=== PATIENT | female | born 1985 | race Caucasian/White ===

== ENCOUNTER 2017-04-28 22:15 | Emergency (ER) | payer MEDICAID, OTHER ==
[2017-04-28] MEDS ORDERED: Ondansetron 4 MG/2 ML SDV ONE (22:38)
[2017-04-28] MEDS ORDERED: Ondansetron 4 MG/2 ML SDV IVPUSH ONE (22:39)
[2017-04-28] MEDS ORDERED: Sodium Chloride 0.9% 1,000 ML ONE (22:39)
--- NOTE | 2017-04-28 22:59 | EDM.PDOC ---
ED HPI GENERAL MEDICAL PROBLEM - General Chief Complaint: Gastrointestinal Problem Stated Complaint: N/V/D Time Seen by Provider: 04/28/17 22:42 Source of Information: Reports: Patient History Limitations: Reports: No Limitations - History of Present Illness INITIAL COMMENTS - FREE TEXT/NARRATIVE: Patient presents with N/V/D that started almost two weeks ago. The vomiting has been 1-2/day until today has been 5x. The diarrhea has only been a couple of the days and was twice today. No blood in it. She denies fever, [place] country travel, eating poorly cooked foods. She has had a cough for most of the two weeks but it has improved the past two days. She smokes so always has some cough she says, just worse the past two weeks. She is still urinating but feels weaker today. - Related Data Allergies Allergy/AdvReac Type Severity Reaction Status Date / Time No Known Drug Allergies Allergy Other Verified 04/28/17 23:07 Home Meds: Home Meds Venlafaxine [Effexor XR] 150 mg PO DAILY 04/28/17 [History] ED ROS GENERAL - Review of Systems Review Of Systems: See Below Constitutional: Reports: Malaise, Weakness. Denies: Fever, Diaphoresis, Decreased Appetite HEENT: Reports: Throat Pain. Denies: Ear Pain, Vision Change Respiratory: Reports: Cough, Sputum. Denies: Shortness of Breath, Wheezing ( did have; but resolved) Cardiovascular: Denies: Chest Pain, Lightheadedness, Syncope GI/Abdominal: Reports: Diarrhea, Nausea, Vomiting. Denies: Abdominal Pain, Constipation : Denies: Discharge, Dysuria, Flank Pain Musculoskeletal: Reports: Other (general body aches) Skin: Denies: Cyanosis, Jaundice, Mottled, Pallor, Diaphoresis Neurological: Denies: Confusion, Dizziness, Seizure, Syncope Psychiatric: Denies: Agitation, Anxiety, Confusion ED EXAM, GI/ABD - Physical Exam Exam: See Below General Appearance: Alert, WD/WN, No Apparent Distress Eyes: Bilateral: Normal Appearance, EOMI Ears: Normal External Exam, Hearing Grossly Normal Nose: Normal Inspection, No Blood Throat/Mouth: Normal Inspection, Normal Lips, Normal Teeth, Normal Gums, Normal Oropharynx, Normal Voice, No Airway Compromise Head: Atraumatic, Normocephalic Neck: Normal Inspection, Full Range of Motion Respiratory/Chest: No Respiratory Distress, Lungs Clear, Normal Breath Sounds, No Accessory Muscle Use Cardiovascular: Regular Rate, Rhythm, No Edema, No Gallop, No JVD, No Murmur GI/Abdominal Exam: Normal Bowel Sounds, Soft, Non-Tender, No Organomegaly, No Distention, No Abnormal Bruit, No Mass Back Exam: No: CVA Tenderness (L), CVA Tenderness (R) Extremities: Normal Inspection, Normal Range of Motion Neurological: Alert, Oriented, Normal Cognition, No Motor/Sensory Deficits Psychiatric: Normal Affect, Normal Mood Skin Exam: Warm, Dry, Intact, Normal Color, No Rash Course - Orders/Labs/Meds Meds: Medications Discontinued Medications Generic Name Dose Route Start Last Admin Trade Name Carlitos PRN Reason Stop Dose Admin Sodium Chloride Confirm 04/28/17 22:39 Normal Saline Administered 04/28/17 22:40 Dose 1,000 mls @ as directed .ROUTE .STK-MED ONE Ondansetron HCl Confirm 04/28/17 22:38 Zofran Administered 04/28/17 22:39 Dose 4 mg .ROUTE .STK-MED ONE - Re-Assessments/Exams Free Text/Narrative Re-Assessment/Exam: 04/28/17 23:53 Patient remained stable throughout ER course. Nausea resolved with Zofran. She felt better overall after the fluids and Zofran. UA normal with trace blood ; patient is finishing up her period. Discussed findings and treatment plan. Discharged in stable condition. Departure - Departure Time of Disposition: 23:53 Disposition: Home, Self-Care 01 Condition: Good Clinical Impression: Nausea vomiting and diarrhea Acute bronchitis Qualifiers: Bronchitis organism: unspecified organism Qualified Code(s): J20.9 - Acute bronchitis, unspecified - Discharge Information Additional Instructions: 1. Drink 8 cups of water daily. 2. Take the medications as directed. 3. You may try Mucinex or Robitussin DM to help control your cough. 4. Follow up with a PCP if not improving or if worsening. 5. Go to ER if worsening and PCP unavailable.
[2017-04-28] MEDS ORDERED: Sodium Chloride 0.9% 1,000 ML IV ONE (23:00)
[2017-04-28 23:31] LABS: CHLORIDE,CL 104 mmol/L (98-115); SODIUM,NA 139 mmol/L (136-145)
== END 2017-04-28 23:55 | disposition home or self-care (01) ==
LOC: KA.ED 22:15
DX: J20.9 Acute bronchitis, unspecified (principal); R19.7 Diarrhea, unspecified; R11.2 Nausea with vomiting, unspecified; Z79.899 Other long term (current) drug therapy
CPT/HCPCS: 80053; 81001; 85025; 96361; 96374; 99283; J2405; J7030

== ENCOUNTER 2022-06-08 02:08 | Emergency (ER) | payer MEDICAID ==
[2022-06-08] MEDS ORDERED: Sodium Chloride 0.9% 1,000 ML ONE (02:34)
[2022-06-08] MEDS ORDERED: HYDROmorphone 1 MG/ML Syringe IVPUSH ONE (02:36)
[2022-06-08] MEDS ORDERED: Sodium Chloride 0.9% 1,000 ML IV ONE (02:37)
[2022-06-08] MEDS ORDERED: Ondansetron 4 MG/2 ML SDV IVPUSH ONE (02:38)
[2022-06-08 03:21] LABS: ANION GAP 14.2 mmol/L (5-15)
[2022-06-08] MEDS ORDERED: Iopamidol 755 Mg/ML 75 ML Bottle IVPUSH ONE (03:46)
[2022-06-08] MEDS ORDERED: Sodium Chloride 0.9% 50 ML IV SCH (04:00)
== END 2022-06-08 05:12 | disposition home or self-care (01) ==
LOC: KA.ED 02:08
DX: K82.8 Other specified diseases of gallbladder (principal); Z72.0 Tobacco use
CPT/HCPCS: 74177; 80053; 81001; 81025; 82150; 83690; 85025; 96361; 96374; 96375; 99284; 99284-25; J1170; J2405; J7030; Q9967

== ENCOUNTER 2022-06-23 00:29 | Emergency (ER) | payer MEDICAID ==
[2022-06-23] MEDS: Sodium Chloride 0.9% 1,000 ML IV ONE (01:00)
[2022-06-23] MEDS: Ondansetron 4 MG/2 ML SDV IVPUSH ONE (01:00)
[2022-06-23] MEDS: HYDROmorphone 1 MG/ML Syringe IVPUSH ONE ×2 (01:10→03:28)
[2022-06-23 01:19] LABS: ANION GAP 12.7 mmol/L (5-15); CHLORIDE,CL 101 mmol/L (98-107); ESTIMATED GFR 118 mL/min (>=60); SODIUM,NA 137 mmol/L (136-145)
[2022-06-23] MEDS: Promethazine 25 MG in Sodium Chloride 0.9% 100 ML IV ONE (02:11)
[2022-06-23] MEDS: Sodium Chloride 0.9% 50 ML IV SCH (02:40)
[2022-06-23] MEDS: Iopamidol 755 Mg/ML 100 ML Bottle IV ONE (02:40)
== END 2022-06-23 04:05 | disposition home or self-care (01) ==
LOC: KA.ED 00:29
DX: K80.20 Calculus of gallbladder without cholecystitis without obstruction (principal); D72.825 Bandemia; Z72.0 Tobacco use; Z98.890 Other specified postprocedural states; Z79.899 Other long term (current) drug therapy
CPT/HCPCS: 36415; 74177; 80053; 81001; 82150; 83690; 84703; 85025; 96361; 96365; 96375; 96376; 99284; 99284-25; J1170; J2405; J2550; J3490; J7030; Q9967

== ENCOUNTER 2022-07-17 07:56 | Day surgery (SDC) | payer MEDICAID ==
[2022-07-17] MEDS ORDERED: Succinylcholine 200 MG/10 ML MDV IV ONE (07:57)
[2022-07-17] MEDS ORDERED: Rocuronium 50 MG/5 ML Vial IV ONE (07:57)
[2022-07-17] MEDS ORDERED: Ondansetron 4 MG/2 ML SDV IV ONE (07:57)
[2022-07-17] MEDS ORDERED: Sodium Chloride 0.9% 10 ML Syringe FLUSH PRN (08:00)
[2022-07-17] MEDS ORDERED: Bacitracin/Neomycin/Polymyxin B Oint 0.9 GM U/D Packet ONE (08:26)
[2022-07-17] MEDS ORDERED: Lactated Ringers 0 ML ONE (08:26)
[2022-07-17] MEDS ORDERED: Bupivacaine 0.5%/EPINEPHrine 1:200,000 50 ML MDV ONE (08:26)
[2022-07-17] MEDS ORDERED: ceFAZolin 1 GM Vial ONE ×3 (08:26→09:22)
[2022-07-17] MEDS: Lactated Ringers 1,000 ML IV SCH (08:40)
[2022-07-17] MEDS: Albuterol 0.083% 2.5 MG/3 ML Neb Soln NEB ONE (08:41)
[2022-07-17] MEDS ORDERED: Propofol 200 MG/20 ML SDV ONE (08:58)
[2022-07-17] MEDS ORDERED: Midazolam 1 MG/ML 2 ML SDV ONE (08:58)
[2022-07-17] MEDS ORDERED: fentaNYL 250 MCG/5 ML SDV ONE (08:58)
[2022-07-17] MEDS: Bacitracin/Neomycin/Polymyxin B Oint 0.9 GM U/D Packet TOP ONE (09:40)
[2022-07-17] MEDS: Bupivacaine 0.5%/EPINEPHrine 1:200,000 50 ML MDV INFILT ONE (09:40)
[2022-07-17] MEDS ORDERED: Lactated Ringers 1,000 ML ONE (10:00)
[2022-07-17] MEDS ORDERED: Dexamethasone 4 MG/ML SDV ONE (10:19)
[2022-07-17] MEDS ORDERED: Glycopyrrolate 0.2 MG/ML SDV ONE (10:19)
[2022-07-17] MEDS ORDERED: Neostigmine Methylsulfate 10 MG/10 ML MDV ONE (10:23)
[2022-07-17] MEDS ORDERED: fentaNYL 100 MCG/2 ML SDV ONE (11:11)
[2022-07-17 14:16] VITALS: PULSE 87
[2022-07-17 14:43] VITALS: BP 126/66
== END 2022-07-17 14:45 | disposition home or self-care (01) ==
LOC: KA.SDS 07:56
PROVIDERS: ATTEND Surgery
DX: K80.12 Calculus of gallbladder with acute and chronic cholecystitis without obstruction (principal); K82.8 Other specified diseases of gallbladder; H66.92 Otitis media, unspecified, left ear; F41.9 Anxiety disorder, unspecified; K21.9 Gastro-esophageal reflux disease without esophagitis; J45.901 Unspecified asthma with (acute) exacerbation; E66.01 Morbid (severe) obesity due to excess calories; F17.210 Nicotine dependence, cigarettes, uncomplicated; Z79.899 Other long term (current) drug therapy; Z68.42 Body mass index [BMI] 45.0-49.9, adult
CPT/HCPCS: 00790; 81025; J0330; J0690; J1100; J2250; J2405; J2704; J2710; J3010; J3490; J7120; J7613-GY